=== PATIENT | female | born 1935 | race Caucasian/White ===

== ENCOUNTER 2022-04-20 10:37 | Inpatient (IN) | payer MEDICARE, SELFPAY ==
[2022-04-20 11:43] LABS: #Eosinphils 0.1 thou/uL (0.0-0.7); #Lymphocytes 0.7 thou/uL (1.20-3.40); #Monocytes 0.3 thou/uL (0.11-0.59); #Neutrophils 6.9 thou/uL (1.40-6.50); %Basophils 0.1 % (0.0-1.0); %Eosinophils 1.2 % (0.0-10.0); %Lymphocytes 8.9 % (21.0-51.0); %Monocytes 3.7 % (0.0-10.0); %Neutrophils 86.1 % (42.0-75.0); Hemoglobin 8.5 g/dL (12.0-16.0); Mean Corpuscular HGB CONC 32.5 g/dL (32.0-36.0); Mean Corpuscular Hemoglobin 34.1 pg (27.0-31.0); Mean Platelet Volume 7.5 fL (7.4-10.4); Platelet Count 237 10x3/uL (130-400); RBC Distribution Width 14.6 % (11.5-14.5); Red Blood Cell (RBC) Count 2.49 mill/uL (4.20-5.40)
[2022-04-20 12:06] LABS: ALT (SGPT) 21 U/L (8-55); AST (SGOT) 19 U/L (5-34); Alkaline Phosphatase 71 U/L (40-110); Anion Gap 18 mmol/L (10-20); BUN (Urea Nitrogen) 31 mg/dL (9.8-20.1); Bilirubin, Total 0.4 mg/dL (0.2-1.2); Calc. Creatinine Clearance 0 mL/min (70-130); Calcium 8.3 mg/dL (7.8-10.44); Carbon Dioxide 22 mmol/L (23-31); Chloride 101 mmol/L (98-107); Estimated GFR 23; Globulin 2.7 g/dL (2.4-3.5); Glucose 306 mg/dL (83-110); Potassium 4.3 mmol/L (3.5-5.1); Protein, Total 5.7 g/dL (5.8-8.1); Sodium 137 mmol/L (136-145)
[2022-04-20] MEDS ORDERED: cefTRIAXone\\ROCEPHIN 2 GM VIAL ONE (12:59)
[2022-04-20 13:39] LABS: Bacteria/HPF 4+ HPF (None Seen); Bilirubin Negative (Negative); Blood, Urine 1+ (Negative); Clarity Turbid (Clear); Glucose, Urine (Dipstick) 300 mg/dL (Negative); Ketone, Urine Negative (Negative); Leukocyte 500 Leu/uL (Negative); Nitrite Negative (Negative); Protein, Urine (Dipstick) Negative (Neg-Trace); Specific Gravity, Urine 1.007 (1.002-1.036); Squamous Epithelial None Seen HPF (0-3); Urobilinogen Normal mg/dL (Less than 2); WBC/HPF 21-50 HPF (0-3)
[2022-04-20] MEDS ORDERED: Benzonatate 100 MG CAP PO PRN (14:13)
[2022-04-20] MEDS ORDERED: Dextrose 5% in Water 1,000 ML IV PRN (14:17)
[2022-04-20] MEDS ORDERED: Dextrose 50% Abboject 50 ML SYRINGE SLOW IVP PRN (14:17)
[2022-04-20] MEDS ORDERED: Senokot S 8.6-50 MG TAB PO PRN (14:18)
[2022-04-20] MEDS ORDERED: Ondansetron ODT 4 MG TAB PO PRN (14:18)
[2022-04-20] MEDS ORDERED: Ondansetron PF 4 MG/2 ML Vial IVP PRN (14:18)
[2022-04-20] MEDS ORDERED: Azithromycin 500 MG VIAL ONE (16:11)
[2022-04-20 20:51] VITALS: BMI 25.6
[2022-04-20] MEDS ORDERED: Famotidine 20 MG TAB PO SCH ×3 (21:00)
[2022-04-20 21:12] LABS: Legionella Urinary Ag Negative (Negative); Strep pneumo Urine Ag NEGATIVE (NEGATIVE)
[2022-04-20 21:56] LABS: SARS-CoV-2 NAA Rapid Test Not Detected (NotDetected)
[2022-04-20] MEDS: Apixaban 2.5 MG TAB PO SCH (22:01)
[2022-04-21 04:29] LABS: #Eosinphils 0.2 thou/uL (0.0-0.7); #Lymphocytes 1.2 thou/uL (1.20-3.40); #Monocytes 0.6 thou/uL (0.11-0.59); %Basophils 0.1 % (0.0-1.0); %Eosinophils 2.3 % (0.0-10.0); %Lymphocytes 16.8 % (21.0-51.0); %Monocytes 8.9 % (0.0-10.0); Hemoglobin 7.8 g/dL (12.0-16.0); Mean Corpuscular HGB CONC 33.6 g/dL (32.0-36.0); Mean Corpuscular Hemoglobin 35.3 pg (27.0-31.0); Mean Platelet Volume 7.7 fL (7.4-10.4); Platelet Count 228 10x3/uL (130-400); RBC Distribution Width 14.2 % (11.5-14.5); Red Blood Cell (RBC) Count 2.22 mill/uL (4.20-5.40)
[2022-04-21 04:56] LABS: Anion Gap 15 mmol/L (10-20); BUN (Urea Nitrogen) 25 mg/dL (9.8-20.1); Calc. Creatinine Clearance 24 mL/min (70-130); Calcium 8.2 mg/dL (7.8-10.44); Carbon Dioxide 22 mmol/L (23-31); Chloride 102 mmol/L (98-107); Estimated GFR 27; Glucose 142 mg/dL (83-110); Potassium 4.3 mmol/L (3.5-5.1); Sodium 135 mmol/L (136-145)
[2022-04-21] MEDS: Apixaban 2.5 MG TAB PO SCH ×2 (08:53→20:25)
[2022-04-21] MEDS: predniSONE 20 MG TAB PO SCH (08:53)
[2022-04-21] MEDS: HumaLOG 300 UNITS/3 ML VIAL SC PRN ×2 (11:26→18:33)
[2022-04-21] MEDS: Azithromycin 500 MG in Sodium Chloride 0.9% 250 ML 250 ML IVPB SCH (11:33)
[2022-04-21] MEDS: cefTRIAXone\\ROCEPHIN 1 GM in Sodium Chloride 0.9% 100 ML IVPB SCH (13:02)
[2022-04-21] MEDS ORDERED: Furosemide 40 MG/4 ML VIAL SLOW IVP SCH (16:45)
[2022-04-21] MEDS: Famotidine 20 MG TAB PO SCH (20:24)
[2022-04-22 05:12] LABS: #Eosinphils 0.2 thou/uL (0.0-0.7); #Monocytes 0.5 thou/uL (0.11-0.59); #Neutrophils 5.3 thou/uL (1.40-6.50); %Basophils 0.1 % (0.0-1.0); %Eosinophils 2.5 % (0.0-10.0); %Lymphocytes 14.4 % (21.0-51.0); %Monocytes 7.6 % (0.0-10.0); %Neutrophils 75.3 % (42.0-75.0); Mean Corpuscular HGB CONC 32.8 g/dL (32.0-36.0); Mean Corpuscular Hemoglobin 34.2 pg (27.0-31.0); Mean Platelet Volume 7.6 fL (7.4-10.4); Platelet Count 228 10x3/uL (130-400); RBC Distribution Width 14.3 % (11.5-14.5); Red Blood Cell (RBC) Count 2.32 mill/uL (4.20-5.40)
[2022-04-22 05:30] LABS: Anion Gap 14 mmol/L (10-20); BUN (Urea Nitrogen) 21 mg/dL (9.8-20.1); Calc. Creatinine Clearance 26 mL/min (70-130); Calcium 8.4 mg/dL (7.8-10.44); Carbon Dioxide 24 mmol/L (23-31); Chloride 100 mmol/L (98-107); Estimated GFR 29; Glucose 176 mg/dL (83-110); Potassium 3.4 mmol/L (3.5-5.1); Sodium 135 mmol/L (136-145)
[2022-04-22] MEDS: Furosemide 40 MG/4 ML VIAL SLOW IVP SCH ×2 (05:41→15:43)
[2022-04-22] MEDS: Acetaminophen 325 MG TAB PO PRN ×2 (08:32→16:23)
[2022-04-22] MEDS: Apixaban 2.5 MG TAB PO SCH ×2 (08:32→20:54)
[2022-04-22] MEDS: predniSONE 20 MG TAB PO SCH (08:32)
[2022-04-22] MEDS ORDERED: Phenazopyridine HCl 100 MG TAB PO SCH (11:00)
[2022-04-22] MEDS: cefTRIAXone\\ROCEPHIN 1 GM in Sodium Chloride 0.9% 100 ML IVPB SCH (12:34)
[2022-04-22] MEDS: HumaLOG 300 UNITS/3 ML VIAL SC PRN ×2 (12:38→18:52)
[2022-04-22] MEDS: Azithromycin 500 MG in Sodium Chloride 0.9% 250 ML 250 ML IVPB SCH (15:32)
[2022-04-22] MEDS: Famotidine 20 MG TAB PO SCH (20:54)
[2022-04-22] MEDS ORDERED: Potassium Chloride 20 MEQ TAB PO SCH (21:00)
[2022-04-22] MEDS ORDERED: Electrolyte Replacement Protocol 1 EACH FS PRN (21:00)
[2022-04-23] MEDS: Acetaminophen 325 MG TAB PO PRN ×4 (00:53→20:30)
[2022-04-23 04:35] LABS: #Eosinphils 0.1 thou/uL (0.0-0.7); #Lymphocytes 1.3 thou/uL (1.20-3.40); #Monocytes 0.7 thou/uL (0.11-0.59); #Neutrophils 5.6 thou/uL (1.40-6.50); %Eosinophils 1.7 % (0.0-10.0); %Lymphocytes 16.7 % (21.0-51.0); %Monocytes 9.3 % (0.0-10.0); %Neutrophils 72.3 % (42.0-75.0); Hemoglobin 7.5 g/dL (12.0-16.0); Mean Corpuscular HGB CONC 33.6 g/dL (32.0-36.0); Mean Corpuscular Hemoglobin 34.8 pg (27.0-31.0); Mean Platelet Volume 7.4 fL (7.4-10.4); Platelet Count 253 10x3/uL (130-400); Red Blood Cell (RBC) Count 2.14 mill/uL (4.20-5.40); White Blood Cell (WBC) Count 7.7 10x3/uL (4.8-10.8)
[2022-04-23 05:03] LABS: Anion Gap 15 mmol/L (10-20); BUN (Urea Nitrogen) 20 mg/dL (9.8-20.1); Calc. Creatinine Clearance 25 mL/min (70-130); Calcium 8.5 mg/dL (7.8-10.44); Carbon Dioxide 23 mmol/L (23-31); Chloride 102 mmol/L (98-107); Estimated GFR 29; Glucose 124 mg/dL (83-110); Potassium 4.2 mmol/L (3.5-5.1); Sodium 136 mmol/L (136-145)
[2022-04-23] MEDS: Folic Acid 1 MG TAB PO SCH (09:25)
[2022-04-23] MEDS: Multivit, Therapeutic 1 TAB PO SCH (09:25)
[2022-04-23] MEDS: Apixaban 2.5 MG TAB PO SCH ×2 (09:25→20:30)
[2022-04-23] MEDS: predniSONE 20 MG TAB PO SCH (09:25)
[2022-04-23] MEDS: Cyanocobalamin (Vitamin B-12) 1,000 MCG TAB PO SCH (09:25)
[2022-04-23] MEDS: Furosemide 40 MG TAB PO SCH (09:26)
[2022-04-23] MEDS: Magnesium 2 GM/50 ML(in water) 2 GM in Premix Bag 1 BAG IVPB SCH ×2 (09:26→10:16)
[2022-04-23] MEDS: cefTRIAXone\\ROCEPHIN 1 GM in Sodium Chloride 0.9% 100 ML IVPB SCH (12:29)
[2022-04-23] MEDS: HumaLOG 300 UNITS/3 ML VIAL SC PRN ×2 (12:40→21:53)
[2022-04-23] MEDS: Azithromycin 500 MG in Sodium Chloride 0.9% 250 ML 250 ML IVPB SCH (16:42)
[2022-04-23] MEDS: Famotidine 20 MG TAB PO SCH (20:30)
[2022-04-24] MEDS: Acetaminophen 325 MG TAB PO PRN ×2 (00:42→18:33)
[2022-04-24] MEDS: predniSONE 20 MG TAB PO SCH (10:03)
[2022-04-24] MEDS: Multivit, Therapeutic 1 TAB PO SCH (10:03)
[2022-04-24] MEDS: Apixaban 2.5 MG TAB PO SCH ×2 (10:04→20:06)
[2022-04-24] MEDS: Cyanocobalamin (Vitamin B-12) 1,000 MCG TAB PO SCH (10:04)
[2022-04-24] MEDS: Furosemide 40 MG TAB PO SCH (10:04)
[2022-04-24] MEDS: Folic Acid 1 MG TAB PO SCH (10:04)
[2022-04-24] MEDS: cefTRIAXone\\ROCEPHIN 1 GM in Sodium Chloride 0.9% 100 ML IVPB SCH (13:06)
[2022-04-24] MEDS: Azithromycin 500 MG in Sodium Chloride 0.9% 250 ML 250 ML IVPB SCH (13:07)
[2022-04-24] MEDS: HumaLOG 300 UNITS/3 ML VIAL SC PRN ×3 (13:07→20:10)
[2022-04-24] MEDS ORDERED: diphenhydrAMINE 25 MG CAP PO PRN (19:33)
[2022-04-24] MEDS: Cefdinir 300 MG CAP PO SCH (20:06)
[2022-04-24] MEDS: Famotidine 20 MG TAB PO SCH (20:06)
[2022-04-25] MEDS ORDERED: Azithromycin 250 MG TAB PO SCH (09:00)
[2022-04-25] MEDS: Furosemide 40 MG TAB PO SCH (10:18)
[2022-04-25] MEDS: Cefdinir 300 MG CAP PO SCH (10:19)
[2022-04-25] MEDS: Folic Acid 1 MG TAB PO SCH (10:19)
[2022-04-25] MEDS: Cyanocobalamin (Vitamin B-12) 1,000 MCG TAB PO SCH (10:19)
[2022-04-25] MEDS: Multivit, Therapeutic 1 TAB PO SCH (10:19)
[2022-04-25] MEDS: predniSONE 20 MG TAB PO SCH (10:19)
[2022-04-25] MEDS: Apixaban 2.5 MG TAB PO SCH (10:19)
[2022-04-25 11:31] VITALS: BP 171/72; TEMP 97.6
== END 2022-04-25 14:42 | disposition home health service (06) | DRG 177 ==
LOC: ERS 10:37 → ERHOLD 14:12 → 2NO 20:08
PROVIDERS: ADMIT Internal Medicine; ATTEND Internal Medicine
DX: J15.6 Pneumonia due to other Gram-negative bacteria (principal); J96.21 Acute and chronic respiratory failure with hypoxia; T83.511A Infection and inflammatory reaction due to indwelling urethral catheter, initial encounter; I13.0 Hypertensive heart and chronic kidney disease with heart failure and stage 1 through stage 4 chronic kidney disease, or unspecified chronic kidney disease; E87.1 Hypo-osmolality and hyponatremia; I48.20 Chronic atrial fibrillation, unspecified; N17.9 Acute kidney failure, unspecified; D63.1 Anemia in chronic kidney disease; E87.6 Hypokalemia; R53.81 Other malaise; E11.22 Type 2 diabetes mellitus with diabetic chronic kidney disease; E78.5 Hyperlipidemia, unspecified; N18.30 Chronic kidney disease, stage 3 unspecified; R33.9 Retention of urine, unspecified; I50.9 Heart failure, unspecified; Z79.01 Long term (current) use of anticoagulants; Z88.6 Allergy status to analgesic agent; Z99.81 Dependence on supplemental oxygen; Z88.0 Allergy status to penicillin; Z79.84 Long term (current) use of oral hypoglycemic drugs; Z79.899 Other long term (current) drug therapy; Z79.4 Long term (current) use of insulin; Z98.890 Other specified postprocedural states; Z95.2 Presence of prosthetic heart valve; Z90.49 Acquired absence of other specified parts of digestive tract; Z90.89 Acquired absence of other organs; Z20.822 Contact with and (suspected) exposure to COVID-19
CPT/HCPCS: 36415; 36416; 71045; 80048; 80053; 81003; 81015; 83735; 83880; 84484; 85025; 87040; 87077; 87086; 87186; 87449; 87899; 93005; 93306; 94640; 94760; 96374; 96375; J0456; J0696; J1815; J1940; J3475; J3490; J7050; J7512; J7620

== ENCOUNTER 2022-06-10 14:12 | Inpatient (IN) | payer MEDICARE ==
[2022-06-10 14:37] LABS: #Eosinphils 0.1 thou/uL (0.0-0.7); #Lymphocytes 0.8 thou/uL (1.20-3.40); #Monocytes 0.4 thou/uL (0.11-0.59); #Neutrophils 8.1 thou/uL (1.40-6.50); %Basophils 0.2 % (0.0-1.0); %Eosinophils 1.5 % (0.0-10.0); %Lymphocytes 8.6 % (21.0-51.0); %Monocytes 3.9 % (0.0-10.0); %Neutrophils 85.8 % (42.0-75.0); Hemoglobin 10.1 g/dL (12.0-16.0); Mean Corpuscular HGB CONC 32.9 g/dL (32.0-36.0); Mean Corpuscular Hemoglobin 34.2 pg (27.0-31.0); Mean Platelet Volume 8.1 fL (7.4-10.4); Platelet Count 216 10x3/uL (130-400); RBC Distribution Width 13.2 % (11.5-14.5); Red Blood Cell (RBC) Count 2.94 mill/uL (4.20-5.40); White Blood Cell (WBC) Count 9.4 10x3/uL (4.8-10.8)
[2022-06-10 14:47] LABS: INR-International Normal Ratio 0.9; PTT 25.3 sec (22.9-36.1); Prothrombin Time 12.5 sec (12.0-14.7)
[2022-06-10 15:11] LABS: ALT (SGPT) 66 U/L (8-55); AST (SGOT) 55 U/L (5-34); Albumin 3.4 g/dL (3.4-4.8); Alkaline Phosphatase 91 U/L (40-110); Anion Gap 18 mmol/L (10-20); BUN (Urea Nitrogen) 22 mg/dL (9.8-20.1); Bilirubin, Total 0.4 mg/dL (0.2-1.2); Calc. Creatinine Clearance 0 mL/min (70-130); Carbon Dioxide 24 mmol/L (23-31); Chloride 101 mmol/L (98-107); Estimated GFR 22; Globulin 2.9 g/dL (2.4-3.5); Glucose 216 mg/dL (83-110); Potassium 3.8 mmol/L (3.5-5.1); Protein, Total 6.3 g/dL (5.8-8.1); Sodium 139 mmol/L (136-145)
[2022-06-10 15:33] LABS: CKMB 1.5 ng/mL (0-6.6)
[2022-06-10] MEDS ORDERED: Ondansetron PF 4 MG/2 ML Vial IVP PRN (17:20)
[2022-06-10] MEDS ORDERED: Furosemide 40 MG/4 ML VIAL SLOW IVP SCH (18:00)
[2022-06-10 19:01] LABS: Anion Gap 19 mmol/L (10-20); BUN (Urea Nitrogen) 24 mg/dL (9.8-20.1); Calc. Creatinine Clearance 0 mL/min (70-130); Calcium 8.8 mg/dL (7.8-10.44); Carbon Dioxide 21 mmol/L (23-31); Chloride 103 mmol/L (98-107); Estimated GFR 23; Glucose 190 mg/dL (83-110); Sodium 139 mmol/L (136-145)
[2022-06-10] MEDS ORDERED: Aspirin 325 MG TAB ONE (19:11)
[2022-06-10 19:20] LABS: CKMB 1.6 ng/mL (0-6.6)
[2022-06-10] MEDS: Acetaminophen 325 MG TAB PO PRN (21:50)
[2022-06-10 22:46] LABS: Troponin I 0.053 ng/mL (< 0.028)
[2022-06-11 00:17] VITALS: BMI 23.1
[2022-06-11 07:23] LABS: Bacteria/HPF None Seen HPF (None Seen); Bilirubin Negative (Negative); Blood, Urine Negative (Negative); CAUTI Indications for Culture Dysuria,urgency,freq; Clarity Clear (Clear); Glucose, Urine (Dipstick) Normal (Negative); Ketone, Urine Trace mg/dL (Negative); Leukocyte Negative Leu/uL (Negative); Nitrite Negative (Negative); Protein, Urine (Dipstick) Negative (Neg-Trace); RBC/HPF 0-3 HPF (0-3); Specific Gravity, Urine 1.013 (1.002-1.036); Squamous Epithelial 0-3 HPF (0-3); Urobilinogen Normal mg/dL (Less than 2); WBC/HPF 0-3 HPF (0-3)
[2022-06-11 07:28] LABS: Urine Culture Reflex No No
[2022-06-11 13:18] LABS: Cardiac Risk 3.4 (Less than 4.5)
[2022-06-11] MEDS ORDERED: Aspirin 81 mg Enteric Coated Tablet PO SCH (15:15)
[2022-06-11] MEDS ORDERED: Clopidogrel Bisulfate 75 MG TAB PO SCH (15:15)
[2022-06-11] MEDS: Atorvastatin Calcium 40 MG TAB PO SCH (20:04)
[2022-06-12] MEDS: Clopidogrel Bisulfate 75 MG TAB PO SCH (10:24)
[2022-06-12] MEDS: Aspirin 81 mg Enteric Coated Tablet PO SCH (10:24)
[2022-06-12] MEDS: Acetaminophen 325 MG TAB PO PRN (10:56)
[2022-06-12] MEDS ORDERED: Dextrose 5% in Water 1,000 ML IV PRN (14:00)
[2022-06-12] MEDS: Atorvastatin Calcium 40 MG TAB PO SCH (20:14)
[2022-06-13] MEDS: Acetaminophen 325 MG TAB PO PRN (01:56)
[2022-06-13] MEDS: Aspirin 81 mg Enteric Coated Tablet PO SCH (09:21)
[2022-06-13] MEDS: Clopidogrel Bisulfate 75 MG TAB PO SCH (09:21)
[2022-06-13] MEDS: busPIRone HCl 5 MG TAB PO SCH ×2 (16:45→21:02)
[2022-06-13] MEDS: traMADol HCl 50 MG TAB PO PRN (16:56)
[2022-06-13] MEDS: Mometasone 200 MCG/Formoterol 5 MCG 120 PUFF INHALER INH SCH (19:53)
[2022-06-13] MEDS: Atorvastatin Calcium 40 MG TAB PO SCH (21:02)
[2022-06-13] MEDS: Senokot S 8.6-50 MG TAB PO SCH (21:02)
[2022-06-13] MEDS: Amiodarone 200 MG TAB PO SCH (21:02)
[2022-06-13] MEDS: Carvedilol 6.25 MG TAB PO SCH (21:02)
[2022-06-14] MEDS: Mometasone 200 MCG/Formoterol 5 MCG 120 PUFF INHALER INH SCH ×2 (08:43→19:43)
[2022-06-14] MEDS ORDERED: Atorvastatin Calcium 40 MG TAB PO SCH (09:00)
[2022-06-14] MEDS ORDERED: Aspirin Chewable 81 MG TAB PO SCH (09:00)
[2022-06-14] MEDS: Amlodipine 10 MG TAB PO SCH (09:45)
[2022-06-14] MEDS: Senokot S 8.6-50 MG TAB PO SCH ×2 (09:45→22:31)
[2022-06-14] MEDS: Carvedilol 6.25 MG TAB PO SCH (09:45)
[2022-06-14] MEDS: Aspirin 81 mg Enteric Coated Tablet PO SCH (09:46)
[2022-06-14] MEDS: busPIRone HCl 5 MG TAB PO SCH ×3 (09:46→22:31)
[2022-06-14] MEDS: Clopidogrel Bisulfate 75 MG TAB PO SCH (09:46)
[2022-06-14] MEDS: Amiodarone 200 MG TAB PO SCH (09:46)
[2022-06-14 11:16] LABS: #Eosinphils 0.2 thou/uL (0.0-0.7); #Lymphocytes 1.2 thou/uL (1.20-3.40); #Monocytes 0.6 thou/uL (0.11-0.59); #Neutrophils 6.2 thou/uL (1.40-6.50); %Basophils 0.2 % (0.0-1.0); %Eosinophils 2.9 % (0.0-10.0); %Lymphocytes 14.5 % (21.0-51.0); %Monocytes 7.6 % (0.0-10.0); %Neutrophils 74.7 % (42.0-75.0); Hemoglobin 9.7 g/dL (12.0-16.0); Mean Corpuscular HGB CONC 33.5 g/dL (32.0-36.0); Mean Corpuscular Hemoglobin 33.9 pg (27.0-31.0); Mean Platelet Volume 7.9 fL (7.4-10.4); Platelet Count 234 10x3/uL (130-400); Red Blood Cell (RBC) Count 2.86 mill/uL (4.20-5.40); White Blood Cell (WBC) Count 8.3 10x3/uL (4.8-10.8)
[2022-06-14 11:35] LABS: Anion Gap 14 mmol/L (10-20); BUN (Urea Nitrogen) 17 mg/dL (9.8-20.1); Calc. Creatinine Clearance 26 mL/min (70-130); Calcium 8.7 mg/dL (7.8-10.44); Carbon Dioxide 25 mmol/L (23-31); Chloride 101 mmol/L (98-107); Estimated GFR 33; Glucose 126 mg/dL (83-110); Potassium 3.9 mmol/L (3.5-5.1); Sodium 136 mmol/L (136-145)
[2022-06-14] MEDS: Betamethasone 0.1% Cream 15 GM TUBE TOP SCH (11:46)
[2022-06-14] MEDS: Atorvastatin Calcium 40 MG TAB PO SCH (22:31)
[2022-06-15] MEDS: Mometasone 200 MCG/Formoterol 5 MCG 120 PUFF INHALER INH SCH ×2 (07:58→18:20)
[2022-06-15] MEDS ORDERED: Protamine Sulfate 50 MG/5 ML VIAL ONE (11:15)
[2022-06-15] MEDS ORDERED: Bupivacaine HCl 0.5%/Epinephrine 1:200,000/PF 30 ml Vial ONE (11:15)
[2022-06-15] MEDS ORDERED: Heparin 5,000 UNITS/ML VIAL ONE (11:15)
[2022-06-15] MEDS ORDERED: fentaNYL PF 100 MCG/2 ML SYRINGE ONE (11:23)
[2022-06-15] MEDS ORDERED: Sodium Chloride 0.9% 0 ML ONE (11:41)
[2022-06-15] MEDS ORDERED: CEFAZOLIN 2 GM VIAL ONE (11:41)
[2022-06-15] MEDS ORDERED: PROPOFOL 200 MG/20 ML VIAL ONE (11:55)
[2022-06-15] MEDS ORDERED: Rocuronium Bromide 10 MG/ML (10ML VIAL) ONE (11:55)
[2022-06-15] MEDS ORDERED: Ondansetron PF 4 MG/2 ML Vial ONE (11:55)
[2022-06-15] MEDS ORDERED: Dexamethasone 20 MG/5 ML VIAL ONE (11:55)
[2022-06-15] MEDS ORDERED: Lidocaine 1% PF 5 ML VIAL ONE (11:55)
[2022-06-15] MEDS ORDERED: Clindamycin/D5W 600 mg/50 ml Premix Bag ONE (12:19)
[2022-06-15] MEDS ORDERED: SUGAMMADEX SODIUM 200 MG/2 ML VIAL ONE (13:21)
[2022-06-15] MEDS ORDERED: Ondansetron HCl/PF 4 MG/2 ML Vial IVP PRN (13:47)
[2022-06-15] MEDS ORDERED: Fentanyl 100 MCG/2 ML VIAL SLOW IVP PRN (13:47)
[2022-06-15] MEDS ORDERED: niCARdipine 25 MG in Sodium Chloride 0.9% 250 ML 250 ML IVPB PRN (13:47)
[2022-06-15] MEDS ORDERED: Ipratropium/Albuterol 3 ML NEB NEB PRN (13:47)
[2022-06-15] MEDS ORDERED: Promethazine HCl 25 MG/ML VIAL IM PRN (13:47)
[2022-06-15] MEDS ORDERED: NOREPINEPHRINE 8 MG/250 ML-D5W 250 ML IVPB PRN (13:47)
[2022-06-15] MEDS: Clopidogrel Bisulfate 75 MG TAB PO SCH (16:03)
[2022-06-15] MEDS: Aspirin 81 mg Enteric Coated Tablet PO SCH (16:03)
[2022-06-15] MEDS: Amlodipine 10 MG TAB PO SCH (16:03)
[2022-06-15] MEDS: busPIRone HCl 5 MG TAB PO SCH ×3 (16:03→20:46)
[2022-06-15] MEDS: Betamethasone 0.1% Cream 15 GM TUBE TOP SCH (16:03)
[2022-06-15] MEDS: Senokot S 8.6-50 MG TAB PO SCH ×2 (16:04→20:45)
[2022-06-15] MEDS: Sodium Chloride 0.9% 1,000 ML IV SCH (16:04)
[2022-06-15] MEDS: traMADol HCl 50 MG TAB PO PRN (18:23)
[2022-06-15] MEDS: Acetaminophen 325 MG TAB PO PRN (18:24)
[2022-06-15] MEDS: Clindamycin/D5W 900 MG in Premix Bag 1 BAG IVPB SCH ×2 (18:25→23:06)
[2022-06-15] MEDS: HumaLOG 300 UNITS/3 ML VIAL SC PRN (20:44)
[2022-06-15] MEDS: Atorvastatin Calcium 40 MG TAB PO SCH (20:45)
[2022-06-15] MEDS: Amiodarone 200 MG TAB PO SCH (20:45)
[2022-06-16 03:56] LABS: #Lymphocytes 0.8 thou/uL (1.20-3.40); #Monocytes 0.5 thou/uL (0.11-0.59); #Neutrophils 10.9 thou/uL (1.40-6.50); %Basophils 0.1 % (0.0-1.0); %Eosinophils 0.4 % (0.0-10.0); %Lymphocytes 6.5 % (21.0-51.0); %Monocytes 4.4 % (0.0-10.0); %Neutrophils 88.6 % (42.0-75.0); Mean Corpuscular HGB CONC 33.2 g/dL (32.0-36.0); Mean Corpuscular Hemoglobin 33.8 pg (27.0-31.0); Mean Platelet Volume 8.4 fL (7.4-10.4); Platelet Count 209 10x3/uL (130-400); RBC Distribution Width 13.1 % (11.5-14.5); Red Blood Cell (RBC) Count 2.66 mill/uL (4.20-5.40); White Blood Cell (WBC) Count 12.3 10x3/uL (4.8-10.8)
[2022-06-16 04:18] LABS: Anion Gap 18 mmol/L (10-20); BUN (Urea Nitrogen) 28 mg/dL (9.8-20.1); Calc. Creatinine Clearance 0 mL/min (70-130); Calcium 8.2 mg/dL (7.8-10.44); Carbon Dioxide 19 mmol/L (23-31); Chloride 100 mmol/L (98-107); Estimated GFR 24; Glucose 171 mg/dL (83-110); Potassium 4.3 mmol/L (3.5-5.1); Sodium 133 mmol/L (136-145)
[2022-06-16] MEDS: HumaLOG 300 UNITS/3 ML VIAL SC PRN (06:48)
[2022-06-16] MEDS: Clindamycin/D5W 900 MG in Premix Bag 1 BAG IVPB SCH ×2 (06:48→11:54)
[2022-06-16] MEDS: Mometasone 200 MCG/Formoterol 5 MCG 120 PUFF INHALER INH SCH ×2 (08:04→18:56)
[2022-06-16] MEDS: Aspirin 81 mg Enteric Coated Tablet PO SCH (09:15)
[2022-06-16] MEDS: Amiodarone 200 MG TAB PO SCH ×2 (09:15→20:29)
[2022-06-16] MEDS: Senokot S 8.6-50 MG TAB PO SCH ×2 (09:15→20:29)
[2022-06-16] MEDS: Amlodipine 10 MG TAB PO SCH (09:16)
[2022-06-16] MEDS: busPIRone HCl 5 MG TAB PO SCH ×3 (09:16→20:33)
[2022-06-16] MEDS: Clopidogrel Bisulfate 75 MG TAB PO SCH (09:16)
[2022-06-16] MEDS: Betamethasone 0.1% Cream 15 GM TUBE TOP SCH (11:54)
[2022-06-16] MEDS: Sodium Chloride 0.9% 1,000 ML IV SCH (11:55)
[2022-06-16] MEDS ORDERED: Labetalol HCl 100 MG/20 ML VIAL SLOW IVP PRN (16:37)
[2022-06-16] MEDS: hydrALAZINE 20 MG/ML VIAL SLOW IVP PRN ×2 (16:47→20:29)
[2022-06-16] MEDS: Atorvastatin Calcium 40 MG TAB PO SCH (20:28)
[2022-06-17] MEDS: Acetaminophen 325 MG TAB PO PRN (02:51)
[2022-06-17 07:18] LABS: #Eosinphils 0.2 thou/uL (0.0-0.7); #Lymphocytes 1.2 thou/uL (1.20-3.40); #Monocytes 0.9 thou/uL (0.11-0.59); #Neutrophils 7.8 thou/uL (1.40-6.50); %Basophils 0.1 % (0.0-1.0); %Eosinophils 2.1 % (0.0-10.0); %Lymphocytes 11.9 % (21.0-51.0); Hemoglobin 8.8 g/dL (12.0-16.0); Mean Corpuscular HGB CONC 32.6 g/dL (32.0-36.0); Mean Corpuscular Hemoglobin 33.5 pg (27.0-31.0); Mean Platelet Volume 7.9 fL (7.4-10.4); Platelet Count 232 10x3/uL (130-400); RBC Distribution Width 13.6 % (11.5-14.5); Red Blood Cell (RBC) Count 2.63 mill/uL (4.20-5.40); White Blood Cell (WBC) Count 10.1 10x3/uL (4.8-10.8)
[2022-06-17 07:34] LABS: Anion Gap 12 mmol/L (10-20); BUN (Urea Nitrogen) 27 mg/dL (9.8-20.1); Calc. Creatinine Clearance 20 mL/min (70-130); Calcium 8.4 mg/dL (7.8-10.44); Carbon Dioxide 25 mmol/L (23-31); Chloride 100 mmol/L (98-107); Estimated GFR 24; Glucose 103 mg/dL (83-110); Potassium 3.8 mmol/L (3.5-5.1); Sodium 133 mmol/L (136-145)
[2022-06-17] MEDS: Mometasone 200 MCG/Formoterol 5 MCG 120 PUFF INHALER INH SCH ×2 (07:38→18:52)
[2022-06-17] MEDS: Senokot S 8.6-50 MG TAB PO SCH (08:11)
[2022-06-17] MEDS: Amiodarone 200 MG TAB PO SCH (08:11)
[2022-06-17] MEDS: Amlodipine 10 MG TAB PO SCH (08:11)
[2022-06-17] MEDS: busPIRone HCl 5 MG TAB PO SCH ×2 (08:11→14:05)
[2022-06-17] MEDS: traMADol HCl 50 MG TAB PO PRN (08:11)
[2022-06-17] MEDS: Clopidogrel Bisulfate 75 MG TAB PO SCH (08:11)
[2022-06-17] MEDS: Aspirin 81 mg Enteric Coated Tablet PO SCH (08:11)
[2022-06-17] MEDS: Sodium Chloride 0.9% 1,000 ML IV SCH (14:05)
[2022-06-17 16:40] VITALS: TEMP 98.1
[2022-06-17 16:57] VITALS: BP 162/72
== END 2022-06-17 19:42 | DRG 37 ==
LOC: ERS 14:12 → NEURO 17:20 → OBSVTOIN 06-11 16:15 → CCU 06-15 10:15 → NEURO 06-16 15:29
PROVIDERS: ADMIT Internal Medicine; ATTEND Family Medicine
PROC: 03CL0ZZ Extirpation of Matter from Left Internal Carotid Artery, Open Approach (ICD-10-PCS; principal; 2022-06-15)
PROC: 03UL0KZ Supplement Left Internal Carotid Artery with Nonautologous Tissue Substitute, Open Approach (ICD-10-PCS; 2022-06-15)
PROC: 3E033XZ Introduction of Vasopressor into Peripheral Vein, Percutaneous Approach (ICD-10-PCS; 2022-06-15)
DX: I63.9 Cerebral infarction, unspecified (principal); I21.A1 Myocardial infarction type 2; G81.94 Hemiplegia, unspecified affecting left nondominant side; I13.0 Hypertensive heart and chronic kidney disease with heart failure and stage 1 through stage 4 chronic kidney disease, or unspecified chronic kidney disease; N17.9 Acute kidney failure, unspecified; J96.10 Chronic respiratory failure, unspecified whether with hypoxia or hypercapnia; I48.20 Chronic atrial fibrillation, unspecified; J44.9 Chronic obstructive pulmonary disease, unspecified; I65.23 Occlusion and stenosis of bilateral carotid arteries; R47.81 Slurred speech; N18.30 Chronic kidney disease, stage 3 unspecified; I50.9 Heart failure, unspecified; E11.22 Type 2 diabetes mellitus with diabetic chronic kidney disease; E78.5 Hyperlipidemia, unspecified; R53.81 Other malaise; R33.9 Retention of urine, unspecified; R59.0 Localized enlarged lymph nodes; R91.1 Solitary pulmonary nodule; Z20.822 Contact with and (suspected) exposure to COVID-19; Z98.890 Other specified postprocedural states; Z79.01 Long term (current) use of anticoagulants; Z95.2 Presence of prosthetic heart valve; Z86.73 Personal history of transient ischemic attack (TIA), and cerebral infarction without residual deficits; Z88.0 Allergy status to penicillin; Z88.6 Allergy status to analgesic agent; Z79.82 Long term (current) use of aspirin; Z79.899 Other long term (current) drug therapy; Z79.4 Long term (current) use of insulin; I27.20 Pulmonary hypertension, unspecified; R29.705 NIHSS score 5
CPT/HCPCS: 36415; 36416; 70450; 70490; 70551; 71045; 80048; 80053; 80061; 81001; 82553; 83880; 84484; 85025; 85610; 85730; 93005; 93306; 93880; 94760; 96374; C1768; G0378; J0360; J1100; J1644; J1815; J1940; J2405; J2704; J2720; J3490; J7050; U0003; U0005

== ENCOUNTER 2022-07-06 14:27 | Inpatient (IN) | payer MEDICARE ==
[~2022-07-06 14:27] MED LIST: Iopamidol-370 76% 500 ML 1 ML ONE
[2022-07-06] MEDS ORDERED: Ondansetron PF 4 MG/2 ML Vial ONE (16:06)
[2022-07-06 16:22] LABS: #Eosinphils 0.1 thou/uL (0.0-0.7); #Lymphocytes 0.6 thou/uL (1.20-3.40); #Monocytes 0.5 thou/uL (0.11-0.59); #Neutrophils 7.6 thou/uL (1.40-6.50); %Basophils 0.1 % (0.0-1.0); %Eosinophils 0.9 % (0.0-10.0); %Lymphocytes 6.4 % (21.0-51.0); %Monocytes 5.3 % (0.0-10.0); %Neutrophils 87.4 % (42.0-75.0); Hemoglobin 8.3 g/dL (12.0-16.0); Mean Corpuscular HGB CONC 32.8 g/dL (32.0-36.0); Mean Corpuscular Hemoglobin 34.3 pg (27.0-31.0); Mean Platelet Volume 7.8 fL (7.4-10.4); Platelet Count 316 10x3/uL (130-400); RBC Distribution Width 16.2 % (11.5-14.5); Red Blood Cell (RBC) Count 2.43 mill/uL (4.20-5.40); White Blood Cell (WBC) Count 8.7 10x3/uL (4.8-10.8)
[2022-07-06 16:29] LABS: ALT (SGPT) 66 U/L (8-55); AST (SGOT) 75 U/L (5-34); Albumin 2.7 g/dL (3.4-4.8); Alkaline Phosphatase 92 U/L (40-110); Anion Gap 19 mmol/L (10-20); BUN (Urea Nitrogen) 18 mg/dL (9.8-20.1); Bilirubin, Total 0.4 mg/dL (0.2-1.2); Calc. Creatinine Clearance 0 mL/min (70-130); Calcium 8.5 mg/dL (7.8-10.44); Carbon Dioxide 20 mmol/L (23-31); Chloride 100 mmol/L (98-107); Estimated GFR 28; Globulin 3.1 g/dL (2.4-3.5); Glucose 131 mg/dL (83-110); Potassium 3.6 mmol/L (3.5-5.1); Protein, Total 5.8 g/dL (5.8-8.1); Sodium 135 mmol/L (136-145)
[2022-07-06 16:47] LABS: CKMB 1.1 ng/mL (0-6.6)
[2022-07-06 17:12] LABS: INR-International Normal Ratio 0.9; Prothrombin Time 12.5 sec (12.0-14.7)
[2022-07-06] MEDS ORDERED: Aspirin 300 MG Suppository ONE (17:12)
[2022-07-06 17:17] LABS: PTT 21.4 sec (22.9-36.1)
[2022-07-06] MEDS ORDERED: Ondansetron ODT 4 MG TAB PO PRN (17:27)
[2022-07-06] MEDS ORDERED: Senokot S 8.6-50 MG TAB PO PRN (17:27)
[2022-07-06] MEDS ORDERED: Dextrose 5%-Lactated Ringers 1,000 ML IV SCH (17:30)
[2022-07-06] MEDS ORDERED: Dextrose 50% Abboject 50 ML SYRINGE SLOW IVP PRN (17:33)
[2022-07-06] MEDS ORDERED: Dextrose 5% in Water 1,000 ML IV PRN (17:33)
[2022-07-06 20:15] LABS: SARS-CoV-2 NAA Rapid Test Not Detected (NotDetected)
[2022-07-06] MEDS: Famotidine/PF 20 mg/2ml Vial SLOW IVP SCH (21:00)
[2022-07-06] MEDS ORDERED: Atorvastatin Calcium 40 MG TAB PO SCH (21:00)
[2022-07-06] MEDS: Amiodarone 200 MG TAB PO SCH (22:09)
[2022-07-06] MEDS: busPIRone HCl 5 MG TAB PO SCH (22:09)
[2022-07-06] MEDS: Famotidine 20 MG TAB PO SCH (22:09)
[2022-07-07] MEDS: Mometasone 200 MCG/Formoterol 5 MCG 120 PUFF INHALER INH SCH ×3 (00:21→19:12)
[2022-07-07 05:16] LABS: #Eosinphils 0.1 thou/uL (0.0-0.7); #Lymphocytes 0.5 thou/uL (1.20-3.40); #Monocytes 0.5 thou/uL (0.11-0.59); #Neutrophils 7.9 thou/uL (1.40-6.50); %Basophils 0.1 % (0.0-1.0); %Eosinophils 1.4 % (0.0-10.0); %Monocytes 5.7 % (0.0-10.0); %Neutrophils 86.8 % (42.0-75.0); Hemoglobin 7.8 g/dL (12.0-16.0); Mean Corpuscular Hemoglobin 34.4 pg (27.0-31.0); Mean Platelet Volume 7.8 fL (7.4-10.4); Platelet Count 289 10x3/uL (130-400); RBC Distribution Width 16.2 % (11.5-14.5); Red Blood Cell (RBC) Count 2.28 mill/uL (4.20-5.40); White Blood Cell (WBC) Count 9.1 10x3/uL (4.8-10.8)
[2022-07-07 05:34] LABS: Anion Gap 17 mmol/L (10-20); BUN (Urea Nitrogen) 19 mg/dL (9.8-20.1); Calc. Creatinine Clearance 21 mL/min (70-130); Calcium 8.5 mg/dL (7.8-10.44); Carbon Dioxide 22 mmol/L (23-31); Chloride 102 mmol/L (98-107); Cholesterol 128 mg/dl (< 200 Desired); Estimated GFR 26; Glucose 111 mg/dL (83-110); Potassium 3.8 mmol/L (3.5-5.1); Sodium 137 mmol/L (136-145); Triglycerides 122 mg/dL (Less than 150)
[2022-07-07 05:48] LABS: Cardiac Risk 3.2 (Less than 4.5); LDL Cholesterol, Calculated 63 mg/dL
[2022-07-07 06:16] LABS: HDL Cholesterol 39 mg/dL (>60 Neg Risk)
[2022-07-07] MEDS ORDERED: Aspirin 81 mg Enteric Coated Tablet PO SCH (09:00)
[2022-07-07] MEDS: Famotidine 20 MG TAB PO SCH (10:43)
[2022-07-07] MEDS: Famotidine/PF 20 mg/2ml Vial SLOW IVP SCH (10:43)
[2022-07-07] MEDS: Amiodarone 200 MG TAB PO SCH ×2 (12:29→21:33)
[2022-07-07] MEDS: Amlodipine 10 MG TAB PO SCH (12:30)
[2022-07-07] MEDS: busPIRone HCl 5 MG TAB PO SCH ×3 (12:30→21:33)
[2022-07-07] MEDS: Clopidogrel Bisulfate 75 MG TAB PO SCH (12:31)
[2022-07-07] MEDS: D5 1/2 NS w/10 mEq KCl 1,000 ML/1,000 ML BAG IV SCH (16:58)
[2022-07-07] MEDS ORDERED: Acetaminophen 650 MG Suppository PR PRN (20:48)
[2022-07-07] MEDS ORDERED: Famotidine/PF 20 mg/2ml Vial SLOW IVP SCH (21:00)
[2022-07-07] MEDS ORDERED: Famotidine 20 MG TAB PO SCH (21:00)
[2022-07-07] MEDS: Scopolamine 1.5 mg/72 hour Patch TD SCH (21:32)
[2022-07-07] MEDS ORDERED: Fentanyl 100 MCG/2 ML VIAL SLOW IVP SCH (22:00)
[2022-07-07] MEDS: Ondansetron PF 4 MG/2 ML Vial IVP PRN (22:06)
[2022-07-08 05:33] LABS: #Eosinphils 0.1 thou/uL (0.0-0.7); #Lymphocytes 0.5 thou/uL (1.20-3.40); #Monocytes 0.5 thou/uL (0.11-0.59); #Neutrophils 6.5 thou/uL (1.40-6.50); %Basophils 0.2 % (0.0-1.0); %Eosinophils 1.9 % (0.0-10.0); %Lymphocytes 6.4 % (21.0-51.0); %Monocytes 6.1 % (0.0-10.0); %Neutrophils 85.4 % (42.0-75.0); Hemoglobin 7.7 g/dL (12.0-16.0); Mean Corpuscular HGB CONC 32.6 g/dL (32.0-36.0); Mean Corpuscular Hemoglobin 34.4 pg (27.0-31.0); Mean Platelet Volume 7.8 fL (7.4-10.4); Platelet Count 276 10x3/uL (130-400); Red Blood Cell (RBC) Count 2.22 mill/uL (4.20-5.40); White Blood Cell (WBC) Count 7.6 10x3/uL (4.8-10.8)
[2022-07-08 05:49] LABS: Anion Gap 17 mmol/L (10-20); BUN (Urea Nitrogen) 19 mg/dL (9.8-20.1); Calc. Creatinine Clearance 22 mL/min (70-130); Calcium 8.3 mg/dL (7.8-10.44); Carbon Dioxide 23 mmol/L (23-31); Chloride 103 mmol/L (98-107); Estimated GFR 27; Glucose 147 mg/dL (83-110); Potassium 3.5 mmol/L (3.5-5.1); Sodium 139 mmol/L (136-145)
[2022-07-08] MEDS: Mometasone 200 MCG/Formoterol 5 MCG 120 PUFF INHALER INH SCH ×2 (07:52→20:25)
[2022-07-08] MEDS: Pantoprazole 40 MG VIAL IVP SCH (09:08)
[2022-07-08] MEDS: Amlodipine 10 MG TAB PO SCH (09:53)
[2022-07-08] MEDS: Clopidogrel Bisulfate 75 MG TAB PO SCH (09:53)
[2022-07-08] MEDS: Amiodarone 200 MG TAB PO SCH ×2 (09:53→21:55)
[2022-07-08] MEDS: busPIRone HCl 5 MG TAB PO SCH ×3 (09:53→21:55)
[2022-07-08] MEDS: Aspirin 300 MG Suppository PR SCH (11:33)
[2022-07-08] MEDS: D5 1/2 NS w/10 mEq KCl 1,000 ML/1,000 ML BAG IV SCH (11:42)
[2022-07-08 12:39] VITALS: BMI 21.6
[2022-07-08] MEDS: Ondansetron PF 4 MG/2 ML Vial IVP PRN (21:52)
[2022-07-08] MEDS: traMADol HCl 50 MG TAB PO PRN (21:55)
[2022-07-09] MEDS: D5 1/2 NS w/10 mEq KCl 1,000 ML/1,000 ML BAG IV SCH ×2 (04:06→17:07)
[2022-07-09] MEDS: Acetaminophen 325 MG TAB PO PRN (05:38)
[2022-07-09] MEDS: Mometasone 200 MCG/Formoterol 5 MCG 120 PUFF INHALER INH SCH ×2 (07:51→19:25)
[2022-07-09 10:40] LABS: #Eosinphils 0.2 thou/uL (0.0-0.7); #Lymphocytes 0.7 thou/uL (1.20-3.40); #Monocytes 0.6 thou/uL (0.11-0.59); #Neutrophils 6.9 thou/uL (1.40-6.50); #Neutrophils 7.1 thou/uL (1.40-6.50); %Basophils 0.1 % (0.0-1.0); %Basophils 0.4 % (0.0-1.0); %Eosinophils 2.2 % (0.0-10.0); %Eosinophils 2.3 % (0.0-10.0); %Lymphocytes 8.3 % (21.0-51.0); %Lymphocytes 8.5 % (21.0-51.0); %Monocytes 6.6 % (0.0-10.0); %Monocytes 7.2 % (0.0-10.0); %Neutrophils 81.6 % (42.0-75.0); %Neutrophils 82.8 % (42.0-75.0); Hemoglobin 8.1 g/dL (12.0-16.0); Hemoglobin 8.2 g/dL (12.0-16.0); Mean Corpuscular Hemoglobin 34.6 pg (27.0-31.0); Mean Platelet Volume 7.6 fL (7.4-10.4); Mean Platelet Volume 7.7 fL (7.4-10.4); Platelet Count 268 10x3/uL (130-400); Platelet Count 269 10x3/uL (130-400); RBC Distribution Width 16.2 % (11.5-14.5); Red Blood Cell (RBC) Count 2.35 mill/uL (4.20-5.40); Red Blood Cell (RBC) Count 2.36 mill/uL (4.20-5.40); White Blood Cell (WBC) Count 8.5 10x3/uL (4.8-10.8); White Blood Cell (WBC) Count 8.6 10x3/uL (4.8-10.8)
[2022-07-09] MEDS: Aspirin 300 MG Suppository PR SCH (10:44)
[2022-07-09] MEDS ORDERED: Aspirin 325 MG TAB PO SCH (10:45)
[2022-07-09] MEDS: Clopidogrel Bisulfate 75 MG TAB PO SCH (10:50)
[2022-07-09] MEDS: busPIRone HCl 5 MG TAB PO SCH ×3 (10:52→22:39)
[2022-07-09 10:54] LABS: Anion Gap 11 mmol/L (10-20); BUN (Urea Nitrogen) 13 mg/dL (9.8-20.1); Calc. Creatinine Clearance 30 mL/min (70-130); Calcium 8.2 mg/dL (7.8-10.44); Carbon Dioxide 26 mmol/L (23-31); Chloride 105 mmol/L (98-107); Estimated GFR 40; Glucose 168 mg/dL (83-110); Potassium 3.7 mmol/L (3.5-5.1); Sodium 138 mmol/L (136-145)
[2022-07-09] MEDS: Amiodarone 200 MG TAB PO SCH ×2 (10:57→22:39)
[2022-07-09] MEDS: Amlodipine 10 MG TAB PO SCH (10:57)
[2022-07-09] MEDS: Pantoprazole 40 MG VIAL IVP SCH (10:59)
[2022-07-09] MEDS ORDERED: Acetaminophen/Codeine 30-300mg Tablet PO PRN (12:39)
[2022-07-09 16:12] LABS: #Eosinphils 0.1 thou/uL (0.0-0.7); #Lymphocytes 0.8 thou/uL (1.20-3.40); #Monocytes 0.5 thou/uL (0.11-0.59); #Neutrophils 5.5 thou/uL (1.40-6.50); %Eosinophils 1.5 % (0.0-10.0); %Lymphocytes 12.1 % (21.0-51.0); %Monocytes 7.1 % (0.0-10.0); %Neutrophils 79.2 % (42.0-75.0); Mean Corpuscular HGB CONC 33.3 g/dL (32.0-36.0); Mean Corpuscular Hemoglobin 34.9 pg (27.0-31.0); Platelet Count 226 10x3/uL (130-400); RBC Distribution Width 16.3 % (11.5-14.5); Red Blood Cell (RBC) Count 2.28 mill/uL (4.20-5.40)
[2022-07-09 16:32] LABS: Anion Gap 9 mmol/L (10-20); BUN (Urea Nitrogen) 13 mg/dL (9.8-20.1); Calc. Creatinine Clearance 31 mL/min (70-130); Calcium 7.9 mg/dL (7.8-10.44); Carbon Dioxide 27 mmol/L (23-31); Chloride 105 mmol/L (98-107); Estimated GFR 42; Glucose 187 mg/dL (83-110); Potassium 3.9 mmol/L (3.5-5.1); Sodium 137 mmol/L (136-145)
[2022-07-09] MEDS: HumaLOG 300 UNITS/3 ML VIAL SC PRN (17:08)
[2022-07-09] MEDS: HYDROcodone/Acetaminophen 5/325 mg Tablet PO PRN (22:35)
[2022-07-09] MEDS: Melatonin 3 MG TAB PO PRN (22:39)
[2022-07-10] MEDS: Mometasone 200 MCG/Formoterol 5 MCG 120 PUFF INHALER INH SCH ×2 (06:52→19:28)
[2022-07-10] MEDS: D5 1/2 NS w/10 mEq KCl 1,000 ML/1,000 ML BAG IV SCH ×2 (07:39→21:16)
[2022-07-10] MEDS ORDERED: FLU VACC QS2022-23(65YR UP)/PF 240 MCG/0.7 ML SYRINGE IM ONE (09:00)
[2022-07-10] MEDS: Pantoprazole 40 MG VIAL IVP SCH (10:46)
[2022-07-10] MEDS: Aspirin 325 MG TAB PO SCH (10:47)
[2022-07-10] MEDS: Amlodipine 10 MG TAB PO SCH (10:48)
[2022-07-10] MEDS: Clopidogrel Bisulfate 75 MG TAB PO SCH (10:48)
[2022-07-10] MEDS: busPIRone HCl 5 MG TAB PO SCH ×3 (10:54→21:21)
[2022-07-10] MEDS: Amiodarone 200 MG TAB PO SCH ×2 (10:56→21:21)
[2022-07-10] MEDS: HumaLOG 300 UNITS/3 ML VIAL SC PRN (11:34)
[2022-07-10] MEDS: Scopolamine 1.5 mg/72 hour Patch TD SCH (21:20)
[2022-07-10 23:31] LABS: #Eosinphils 0.3 thou/uL (0.0-0.7); #Lymphocytes 0.9 thou/uL (1.20-3.40); #Monocytes 0.7 thou/uL (0.11-0.59); #Neutrophils 5.7 thou/uL (1.40-6.50); %Basophils 0.2 % (0.0-1.0); %Eosinophils 3.7 % (0.0-10.0); %Lymphocytes 11.9 % (21.0-51.0); %Monocytes 9.3 % (0.0-10.0); %Neutrophils 74.9 % (42.0-75.0); Hemoglobin 7.9 g/dL (12.0-16.0); Mean Corpuscular HGB CONC 33.3 g/dL (32.0-36.0); Mean Corpuscular Hemoglobin 34.9 pg (27.0-31.0); Mean Platelet Volume 7.8 fL (7.4-10.4); Platelet Count 220 10x3/uL (130-400); RBC Distribution Width 16.2 % (11.5-14.5); Red Blood Cell (RBC) Count 2.28 mill/uL (4.20-5.40); White Blood Cell (WBC) Count 7.7 10x3/uL (4.8-10.8)
[2022-07-11] MEDS: D5 1/2 NS w/10 mEq KCl 1,000 ML/1,000 ML BAG IV SCH ×2 (04:02→16:38)
[2022-07-11] MEDS: Mometasone 200 MCG/Formoterol 5 MCG 120 PUFF INHALER INH SCH ×2 (06:53→19:55)
[2022-07-11] MEDS ORDERED: Ipratropium/Albuterol 3 ML NEB NEB PRN (11:33)
[2022-07-11] MEDS: Amiodarone 200 MG TAB PO SCH ×2 (11:35→20:43)
[2022-07-11] MEDS: Pantoprazole 40 MG VIAL IVP SCH (11:35)
[2022-07-11] MEDS: Amlodipine 10 MG TAB PO SCH (11:35)
[2022-07-11] MEDS: Clopidogrel Bisulfate 75 MG TAB PO SCH (11:35)
[2022-07-11] MEDS: Aspirin 325 MG TAB PO SCH (11:35)
[2022-07-11] MEDS: busPIRone HCl 5 MG TAB PO SCH ×3 (11:35→20:44)
[2022-07-11] MEDS: HumaLOG 300 UNITS/3 ML VIAL SC PRN (12:29)
[2022-07-11] MEDS: traMADol HCl 50 MG TAB PO PRN (20:40)
[2022-07-11] MEDS: ALPRAZolam 0.25 MG TAB PO PRN (20:44)
[2022-07-12] MEDS: D5 1/2 NS w/10 mEq KCl 1,000 ML/1,000 ML BAG IV SCH ×2 (05:44→20:44)
[2022-07-12] MEDS: Mometasone 200 MCG/Formoterol 5 MCG 120 PUFF INHALER INH SCH ×2 (07:19→20:25)
[2022-07-12] MEDS: Aspirin 81 mg Enteric Coated Tablet PO SCH (09:41)
[2022-07-12] MEDS: Amiodarone 200 MG TAB PO SCH ×2 (09:41→20:45)
[2022-07-12] MEDS: busPIRone HCl 5 MG TAB PO SCH ×3 (09:41→20:45)
[2022-07-12] MEDS: Amlodipine 10 MG TAB PO SCH (09:42)
[2022-07-12] MEDS: Clopidogrel Bisulfate 75 MG TAB PO SCH (09:45)
[2022-07-12] MEDS: Pantoprazole 40 MG VIAL IVP SCH (09:45)
[2022-07-12] MEDS: HumaLOG 300 UNITS/3 ML VIAL SC PRN (12:08)
[2022-07-12 16:40] LABS: #Eosinphils 0.2 thou/uL (0.0-0.7); #Lymphocytes 0.9 thou/uL (1.20-3.40); #Monocytes 0.6 thou/uL (0.11-0.59); %Eosinophils 3.1 % (0.0-10.0); %Lymphocytes 15.2 % (21.0-51.0); %Monocytes 10.8 % (0.0-10.0); Hemoglobin 8.2 g/dL (12.0-16.0); Mean Corpuscular HGB CONC 32.7 g/dL (32.0-36.0); Mean Corpuscular Hemoglobin 34.1 pg (27.0-31.0); Mean Platelet Volume 7.9 fL (7.4-10.4); Platelet Count 209 10x3/uL (130-400); RBC Distribution Width 16.3 % (11.5-14.5); White Blood Cell (WBC) Count 5.7 10x3/uL (4.8-10.8)
[2022-07-12 16:56] LABS: Anion Gap 9 mmol/L (10-20); BUN (Urea Nitrogen) 9 mg/dL (9.8-20.1); Calc. Creatinine Clearance 32 mL/min (70-130); Calcium 8.2 mg/dL (7.8-10.44); Carbon Dioxide 24 mmol/L (23-31); Chloride 107 mmol/L (98-107); Estimated GFR 44; Glucose 107 mg/dL (83-110); Potassium 3.8 mmol/L (3.5-5.1); Sodium 136 mmol/L (136-145)
[2022-07-12] MEDS: traMADol HCl 50 MG TAB PO PRN (20:45)
[2022-07-12] MEDS: ALPRAZolam 0.25 MG TAB PO PRN (20:45)
[2022-07-13] MEDS: Mometasone 200 MCG/Formoterol 5 MCG 120 PUFF INHALER INH SCH ×2 (07:09→19:24)
[2022-07-13] MEDS: Pantoprazole 40 MG VIAL IVP SCH (10:35)
[2022-07-13] MEDS: Aspirin 81 mg Enteric Coated Tablet PO SCH (10:37)
[2022-07-13] MEDS: Clopidogrel Bisulfate 75 MG TAB PO SCH (10:37)
[2022-07-13] MEDS: busPIRone HCl 5 MG TAB PO SCH ×3 (10:37→21:34)
[2022-07-13] MEDS: Amiodarone 200 MG TAB PO SCH ×2 (10:38→21:35)
[2022-07-13] MEDS: Amlodipine 10 MG TAB PO SCH (10:38)
[2022-07-13] MEDS: D5 1/2 NS w/10 mEq KCl 1,000 ML/1,000 ML BAG IV SCH ×2 (10:45→13:22)
[2022-07-13] MEDS: HumaLOG 300 UNITS/3 ML VIAL SC PRN (11:26)
[2022-07-13 16:46] LABS: Bilirubin Negative (Negative); Blood, Urine Negative (Negative); CAUTI Indications for Culture Acute Hematuria; Clarity Clear (Clear); Glucose, Urine (Dipstick) Normal (Negative); Ketone, Urine Negative (Negative); Leukocyte Negative Leu/uL (Negative); Nitrite Negative (Negative); Protein, Urine (Dipstick) 10 mg/dL (Neg-Trace); RBC/HPF 0-3 HPF (0-3); Specific Gravity, Urine 1.007 (1.002-1.036); Squamous Epithelial None Seen HPF (0-3); Urobilinogen Normal mg/dL (Less than 2); WBC/HPF 0-3 HPF (0-3); pH, Urine 5.5 (5.0-9.0)
[2022-07-13 16:47] LABS: Bacteria/HPF 1+ HPF (None Seen); Urine Culture Reflex No No
[2022-07-13] MEDS: traMADol HCl 50 MG TAB PO PRN (21:34)
[2022-07-13] MEDS: ALPRAZolam 0.25 MG TAB PO PRN (21:34)
[2022-07-13] MEDS: Atorvastatin Calcium 40 MG TAB PO SCH (21:35)
[2022-07-13] MEDS: Scopolamine 1.5 mg/72 hour Patch TD SCH (21:35)
[2022-07-14 04:50] LABS: #Eosinphils 0.3 thou/uL (0.0-0.7); #Monocytes 0.8 thou/uL (0.11-0.59); #Neutrophils 4.3 thou/uL (1.40-6.50); %Basophils 0.5 % (0.0-1.0); %Lymphocytes 15.2 % (21.0-51.0); %Monocytes 12.5 % (0.0-10.0); %Neutrophils 67.8 % (42.0-75.0); Hemoglobin 8.2 g/dL (12.0-16.0); Mean Corpuscular Hemoglobin 35.6 pg (27.0-31.0); Mean Platelet Volume 7.9 fL (7.4-10.4); Platelet Count 217 10x3/uL (130-400); RBC Distribution Width 16.2 % (11.5-14.5); White Blood Cell (WBC) Count 6.4 10x3/uL (4.8-10.8)
[2022-07-14 04:52] LABS: Actual Bicarbonate (HCO3v) 22 mEq/L (22-28); Base Excess -0.2 mEq/L (-2.0 to +3.0); Calcium, Ionized (venous) 0.98 mmol/L (1.16-1.32); Chloride (VBG) 107 mmol/L (98-106); Hemoglobin (Hb) 9.2 g/dL (11.7-16.1); Potassium (VBG) 4.35 mmol/L (3.70-5.30); Sodium 133.2 mmol/L (133-146); pH (venous) 7.55 (7.32-7.43)
[2022-07-14 05:06] LABS: Anion Gap 13 mmol/L (10-20); BUN (Urea Nitrogen) 9 mg/dL (9.8-20.1); Calc. Creatinine Clearance 32 mL/min (70-130); Calcium 8.1 mg/dL (7.8-10.44); Carbon Dioxide 21 mmol/L (23-31); Chloride 107 mmol/L (98-107); Estimated GFR 43; Glucose 129 mg/dL (83-110); Potassium 4.2 mmol/L (3.5-5.1); Sodium 137 mmol/L (136-145)
[2022-07-14] MEDS: D5 1/2 NS w/10 mEq KCl 1,000 ML/1,000 ML BAG IV SCH (06:34)
[2022-07-14] MEDS: Mometasone 200 MCG/Formoterol 5 MCG 120 PUFF INHALER INH SCH ×2 (07:34→19:24)
[2022-07-14] MEDS ORDERED: Furosemide 40 MG/4 ML VIAL SLOW IVP SCH (09:30)
[2022-07-14] MEDS: Pantoprazole 40 MG VIAL IVP SCH ×2 (11:11→13:41)
[2022-07-14] MEDS: Amiodarone 200 MG TAB PO SCH ×2 (11:12→20:00)
[2022-07-14] MEDS: Amlodipine 10 MG TAB PO SCH (11:12)
[2022-07-14] MEDS: busPIRone HCl 5 MG TAB PO SCH ×3 (11:12→20:00)
[2022-07-14] MEDS: Clopidogrel Bisulfate 75 MG TAB PO SCH (11:12)
[2022-07-14] MEDS: Aspirin 81 mg Enteric Coated Tablet PO SCH (11:12)
[2022-07-14] MEDS ORDERED: Furosemide 40 MG TAB PO SCH (12:45)
[2022-07-14 16:03] LABS: Troponin I 0.022 ng/mL (< 0.028)
[2022-07-14] MEDS: Acetaminophen 325 MG TAB PO PRN (20:00)
[2022-07-14] MEDS: Atorvastatin Calcium 40 MG TAB PO SCH (20:00)
[2022-07-14] MEDS ORDERED: Apixaban 2.5 MG TAB PO SCH (21:00)
[2022-07-15 05:42] LABS: #Eosinphils 0.3 thou/uL (0.0-0.7); #Lymphocytes 1.2 thou/uL (1.20-3.40); #Monocytes 0.8 thou/uL (0.11-0.59); #Neutrophils 4.7 thou/uL (1.40-6.50); %Basophils 0.2 % (0.0-1.0); %Eosinophils 3.8 % (0.0-10.0); %Lymphocytes 17.1 % (21.0-51.0); %Monocytes 11.2 % (0.0-10.0); %Neutrophils 67.6 % (42.0-75.0); Hemoglobin 8.4 g/dL (12.0-16.0); Mean Corpuscular HGB CONC 32.7 g/dL (32.0-36.0); Mean Corpuscular Hemoglobin 34.6 pg (27.0-31.0); Platelet Count 218 10x3/uL (130-400); RBC Distribution Width 16.2 % (11.5-14.5); Red Blood Cell (RBC) Count 2.44 mill/uL (4.20-5.40); White Blood Cell (WBC) Count 6.9 10x3/uL (4.8-10.8)
[2022-07-15 06:01] LABS: Anion Gap 14 mmol/L (10-20); BUN (Urea Nitrogen) 10 mg/dL (9.8-20.1); Calc. Creatinine Clearance 29 mL/min (70-130); Calcium 8.3 mg/dL (7.8-10.44); Carbon Dioxide 23 mmol/L (23-31); Chloride 106 mmol/L (98-107); Estimated GFR 39; Glucose 99 mg/dL (83-110); Potassium 3.8 mmol/L (3.5-5.1); Sodium 139 mmol/L (136-145)
[2022-07-15] MEDS: Mometasone 200 MCG/Formoterol 5 MCG 120 PUFF INHALER INH SCH ×2 (07:18→19:13)
[2022-07-15] MEDS: Amiodarone 200 MG TAB PO SCH ×2 (09:35→20:30)
[2022-07-15] MEDS: Amlodipine 10 MG TAB PO SCH (09:35)
[2022-07-15] MEDS: Aspirin 81 mg Enteric Coated Tablet PO SCH (09:35)
[2022-07-15] MEDS: busPIRone HCl 5 MG TAB PO SCH ×3 (09:35→20:30)
[2022-07-15] MEDS: Pantoprazole 40 MG VIAL IVP SCH (09:35)
[2022-07-15] MEDS: Atorvastatin Calcium 40 MG TAB PO SCH (20:30)
[2022-07-15] MEDS: Acetaminophen 325 MG TAB PO PRN (20:30)
[2022-07-16 06:06] LABS: #Eosinphils 0.1 thou/uL (0.0-0.7); #Lymphocytes 0.9 thou/uL (1.20-3.40); #Monocytes 0.6 thou/uL (0.11-0.59); #Neutrophils 4.6 thou/uL (1.40-6.50); %Eosinophils 2.2 % (0.0-10.0); %Monocytes 9.4 % (0.0-10.0); %Neutrophils 74.5 % (42.0-75.0); Hemoglobin 8.1 g/dL (12.0-16.0); Mean Corpuscular Hemoglobin 34.5 pg (27.0-31.0); Platelet Count 218 10x3/uL (130-400); Red Blood Cell (RBC) Count 2.36 mill/uL (4.20-5.40); White Blood Cell (WBC) Count 6.1 10x3/uL (4.8-10.8)
[2022-07-16 06:47] LABS: Anion Gap 17 mmol/L (10-20); BUN (Urea Nitrogen) 11 mg/dL (9.8-20.1); Calc. Creatinine Clearance 31 mL/min (70-130); Calcium 8.1 mg/dL (7.8-10.44); Carbon Dioxide 19 mmol/L (23-31); Chloride 107 mmol/L (98-107); Estimated GFR 42; Glucose 83 mg/dL (83-110); Potassium 3.7 mmol/L (3.5-5.1); Sodium 139 mmol/L (136-145)
[2022-07-16] MEDS: Mometasone 200 MCG/Formoterol 5 MCG 120 PUFF INHALER INH SCH ×2 (08:25→19:51)
[2022-07-16] MEDS: busPIRone HCl 5 MG TAB PO SCH ×3 (08:28→20:57)
[2022-07-16] MEDS: Apixaban 2.5 MG TAB PO SCH ×2 (08:28→20:57)
[2022-07-16] MEDS: Aspirin 81 mg Enteric Coated Tablet PO SCH (08:28)
[2022-07-16] MEDS: Amlodipine 10 MG TAB PO SCH (08:28)
[2022-07-16] MEDS: Amiodarone 200 MG TAB PO SCH ×2 (08:28→20:57)
[2022-07-16] MEDS: Pantoprazole 40 MG VIAL IVP SCH (08:29)
[2022-07-16] MEDS ORDERED: Apixaban 5 MG TAB PO SCH (09:00)
[2022-07-16] MEDS: Atorvastatin Calcium 40 MG TAB PO SCH (20:57)
[2022-07-16] MEDS: ALPRAZolam 0.25 MG TAB PO PRN (20:58)
[2022-07-16] MEDS: HYDROcodone/Acetaminophen 5/325 mg Tablet PO PRN (20:58)
[2022-07-16] MEDS: Scopolamine 1.5 mg/72 hour Patch TD SCH (21:03)
[2022-07-17] MEDS: Mometasone 200 MCG/Formoterol 5 MCG 120 PUFF INHALER INH SCH ×2 (06:55→19:26)
[2022-07-17 07:08] LABS: #Eosinphils 0.2 thou/uL (0.0-0.7); #Lymphocytes 1.1 thou/uL (1.20-3.40); #Monocytes 0.6 thou/uL (0.11-0.59); #Neutrophils 3.4 thou/uL (1.40-6.50); %Basophils 0.5 % (0.0-1.0); %Eosinophils 3.7 % (0.0-10.0); %Lymphocytes 20.7 % (21.0-51.0); %Monocytes 11.8 % (0.0-10.0); %Neutrophils 63.4 % (42.0-75.0); Hemoglobin 8.2 g/dL (12.0-16.0); Mean Corpuscular HGB CONC 33.4 g/dL (32.0-36.0); Mean Corpuscular Hemoglobin 34.8 pg (27.0-31.0); Platelet Count 193 10x3/uL (130-400); RBC Distribution Width 15.8 % (11.5-14.5); Red Blood Cell (RBC) Count 2.36 mill/uL (4.20-5.40); White Blood Cell (WBC) Count 5.4 10x3/uL (4.8-10.8)
[2022-07-17 07:27] LABS: Anion Gap 14 mmol/L (10-20); BUN (Urea Nitrogen) 12 mg/dL (9.8-20.1); Calc. Creatinine Clearance 30 mL/min (70-130); Calcium 8.5 mg/dL (7.8-10.44); Carbon Dioxide 24 mmol/L (23-31); Chloride 107 mmol/L (98-107); Estimated GFR 40; Glucose 72 mg/dL (83-110); Potassium 3.6 mmol/L (3.5-5.1); Sodium 141 mmol/L (136-145)
[2022-07-17] MEDS: Amiodarone 200 MG TAB PO SCH ×2 (09:09→20:31)
[2022-07-17] MEDS: Apixaban 2.5 MG TAB PO SCH ×2 (09:09→20:32)
[2022-07-17] MEDS: Aspirin 81 mg Enteric Coated Tablet PO SCH (09:09)
[2022-07-17] MEDS: Amlodipine 10 MG TAB PO SCH (09:09)
[2022-07-17] MEDS: busPIRone HCl 5 MG TAB PO SCH ×3 (09:09→20:31)
[2022-07-17] MEDS: Pantoprazole 40 MG VIAL IVP SCH (09:09)
[2022-07-17] MEDS: HYDROcodone/Acetaminophen 5/325 mg Tablet PO PRN (16:14)
[2022-07-17] MEDS: ALPRAZolam 0.25 MG TAB PO PRN (20:31)
[2022-07-17] MEDS: Atorvastatin Calcium 40 MG TAB PO SCH (20:32)
[2022-07-18] MEDS: Mometasone 200 MCG/Formoterol 5 MCG 120 PUFF INHALER INH SCH ×2 (07:47→19:08)
[2022-07-18] MEDS: Amiodarone 200 MG TAB PO SCH ×2 (10:11→21:16)
[2022-07-18] MEDS: Apixaban 2.5 MG TAB PO SCH ×2 (10:11→21:16)
[2022-07-18] MEDS: busPIRone HCl 5 MG TAB PO SCH ×3 (10:11→21:16)
[2022-07-18] MEDS: Aspirin 81 mg Enteric Coated Tablet PO SCH (10:11)
[2022-07-18] MEDS: Amlodipine 10 MG TAB PO SCH (10:11)
[2022-07-18] MEDS: Pantoprazole 40 MG VIAL IVP SCH (10:12)
[2022-07-18] MEDS: traMADol HCl 50 MG TAB PO PRN (18:22)
[2022-07-18] MEDS: Ipratropium/Albuterol 3 ML NEB NEB SCH (19:07)
[2022-07-18] MEDS: Atorvastatin Calcium 40 MG TAB PO SCH (21:15)
[2022-07-19] MEDS: Ipratropium/Albuterol 3 ML NEB NEB SCH ×5 (00:19→23:34)
[2022-07-19] MEDS: HYDROcodone/Acetaminophen 5/325 mg Tablet PO PRN (03:17)
[2022-07-19] MEDS: Mometasone 200 MCG/Formoterol 5 MCG 120 PUFF INHALER INH SCH ×2 (07:17→18:36)
[2022-07-19] MEDS: Amiodarone 200 MG TAB PO SCH ×2 (10:02→22:44)
[2022-07-19] MEDS: Apixaban 2.5 MG TAB PO SCH ×2 (10:03→22:42)
[2022-07-19] MEDS: Amlodipine 10 MG TAB PO SCH (10:03)
[2022-07-19] MEDS: busPIRone HCl 5 MG TAB PO SCH ×3 (10:03→22:42)
[2022-07-19] MEDS: Aspirin 81 mg Enteric Coated Tablet PO SCH (10:03)
[2022-07-19] MEDS: Scopolamine 1.5 mg/72 hour Patch TD SCH (22:41)
[2022-07-19] MEDS: Atorvastatin Calcium 40 MG TAB PO SCH (22:42)
[2022-07-19] MEDS: Pantoprazole 40 MG VIAL IVP SCH (22:43)
[2022-07-20 06:24] LABS: #Eosinphils 0.1 thou/uL (0.0-0.7); #Lymphocytes 0.7 thou/uL (1.20-3.40); #Monocytes 0.7 thou/uL (0.11-0.59); #Neutrophils 9.1 thou/uL (1.40-6.50); %Eosinophils 0.5 % (0.0-10.0); %Lymphocytes 6.6 % (21.0-51.0); %Monocytes 6.7 % (0.0-10.0); %Neutrophils 86.1 % (42.0-75.0); Hemoglobin 7.9 g/dL (12.0-16.0); Mean Corpuscular HGB CONC 32.7 g/dL (32.0-36.0); Mean Corpuscular Hemoglobin 34.2 pg (27.0-31.0); Mean Platelet Volume 8.6 fL (7.4-10.4); Platelet Count 184 10x3/uL (130-400); Red Blood Cell (RBC) Count 2.31 mill/uL (4.20-5.40); White Blood Cell (WBC) Count 10.6 10x3/uL (4.8-10.8)
[2022-07-20 06:46] LABS: Anion Gap 17 mmol/L (10-20); BUN (Urea Nitrogen) 14 mg/dL (9.8-20.1); Calc. Creatinine Clearance 33 mL/min (70-130); Calcium 8.8 mg/dL (7.8-10.44); Carbon Dioxide 20 mmol/L (23-31); Chloride 109 mmol/L (98-107); Estimated GFR 45; Glucose 116 mg/dL (83-110); Magnesium 1.8 mg/dL (1.6-2.6); Potassium 3.9 mmol/L (3.5-5.1); Sodium 142 mmol/L (136-145)
[2022-07-20] MEDS: Ipratropium/Albuterol 3 ML NEB NEB SCH ×2 (08:01→20:32)
[2022-07-20] MEDS: Mometasone 200 MCG/Formoterol 5 MCG 120 PUFF INHALER INH SCH ×2 (08:02→20:35)
[2022-07-20] MEDS ORDERED: Electrolyte Replacement Protocol 1 EACH FS SCH (08:15)
[2022-07-20] MEDS ORDERED: Electrolyte Replacement Protocol FS PRN (08:15)
[2022-07-20] MEDS: Apixaban 2.5 MG TAB PO SCH ×2 (08:28→22:38)
[2022-07-20] MEDS: Amiodarone 200 MG TAB PO SCH ×2 (08:29→22:38)
[2022-07-20] MEDS: Amlodipine 10 MG TAB PO SCH (08:30)
[2022-07-20] MEDS ORDERED: Furosemide 20 MG/2 ML VIAL SLOW IVP SCH (08:30)
[2022-07-20] MEDS: busPIRone HCl 5 MG TAB PO SCH ×3 (08:37→22:39)
[2022-07-20] MEDS: HYDROcodone/Acetaminophen 5/325 mg Tablet PO PRN (08:37)
[2022-07-20] MEDS: Aspirin 81 mg Enteric Coated Tablet PO SCH (08:37)
[2022-07-20] MEDS ORDERED: Magnesium 2 GM/50 ML(in water) 2 GM in Premix Bag 1 BAG IVPB SCH (10:15)
[2022-07-20] MEDS ORDERED: traMADol HCl 50 MG TAB PO PRN (13:00)
[2022-07-20] MEDS: Acetaminophen 325 MG TAB PO PRN (22:38)
[2022-07-20] MEDS: Pantoprazole 40 MG VIAL IVP SCH (22:39)
[2022-07-20] MEDS: Atorvastatin Calcium 40 MG TAB PO SCH (23:30)
[2022-07-21] MEDS: Mometasone 200 MCG/Formoterol 5 MCG 120 PUFF INHALER INH SCH ×2 (06:57→20:19)
[2022-07-21] MEDS: Ipratropium/Albuterol 3 ML NEB NEB SCH ×2 (06:57→20:15)
[2022-07-21 10:24] LABS: Magnesium 2.3 mg/dL (1.6-2.6)
[2022-07-21] MEDS: Apixaban 2.5 MG TAB PO SCH ×2 (11:54→22:03)
[2022-07-21] MEDS: Amiodarone 200 MG TAB PO SCH ×2 (12:01→22:03)
[2022-07-21] MEDS: Aspirin 81 mg Enteric Coated Tablet PO SCH (12:07)
[2022-07-21] MEDS: busPIRone HCl 5 MG TAB PO SCH ×3 (12:08→22:03)
[2022-07-21] MEDS: Amlodipine 10 MG TAB PO SCH (12:20)
[2022-07-21] MEDS: Atorvastatin Calcium 40 MG TAB PO SCH (22:03)
[2022-07-21] MEDS: Acetaminophen 325 MG TAB PO PRN (22:03)
[2022-07-21] MEDS: Bisacodyl 10 MG SUPP PR SCH (22:03)
[2022-07-21] MEDS: Melatonin 3 MG TAB PO PRN (22:03)
[2022-07-21] MEDS: Senokot S 8.6-50 MG TAB PO SCH (22:04)
[2022-07-21] MEDS: Polyethylene Glycol 3350 17 GM Packet PO SCH (22:04)
[2022-07-22] MEDS: Atorvastatin Calcium 40 MG TAB PO SCH ×2 (06:50→20:51)
[2022-07-22] MEDS: Ipratropium/Albuterol 3 ML NEB NEB SCH ×2 (07:24→19:46)
[2022-07-22] MEDS: Mometasone 200 MCG/Formoterol 5 MCG 120 PUFF INHALER INH SCH ×2 (07:31→19:46)
[2022-07-22] MEDS ORDERED: Furosemide 40 MG TAB PO SCH ×2 (08:15→16:00)
[2022-07-22] MEDS: Potassium Bicarbonate/Cit Ac 20 MEQ TAB PO SCH ×2 (09:02→12:09)
[2022-07-22] MEDS: Amiodarone 200 MG TAB PO SCH ×2 (09:03→20:51)
[2022-07-22] MEDS: Apixaban 2.5 MG TAB PO SCH (09:03)
[2022-07-22] MEDS: Aspirin 81 mg Enteric Coated Tablet PO SCH (09:04)
[2022-07-22] MEDS: Amlodipine 10 MG TAB PO SCH (09:04)
[2022-07-22] MEDS: busPIRone HCl 5 MG TAB PO SCH (09:04)
[2022-07-22] MEDS: Senokot S 8.6-50 MG TAB PO SCH ×2 (09:05→19:50)
[2022-07-22 12:30] LABS: #Lymphocytes 0.6 thou/uL (1.20-3.40); #Monocytes 0.6 thou/uL (0.11-0.59); #Neutrophils 14.6 thou/uL (1.40-6.50); %Eosinophils 0.2 % (0.0-10.0); %Lymphocytes 3.5 % (21.0-51.0); %Monocytes 3.6 % (0.0-10.0); %Neutrophils 92.7 % (42.0-75.0); Mean Corpuscular HGB CONC 31.6 g/dL (32.0-36.0); Mean Corpuscular Hemoglobin 33.1 pg (27.0-31.0); Platelet Count 155 10x3/uL (130-400); RBC Distribution Width 16.6 % (11.5-14.5); White Blood Cell (WBC) Count 15.7 10x3/uL (4.8-10.8)
[2022-07-22 12:51] LABS: ALT (SGPT) 60 U/L (8-55); AST (SGOT) 83 U/L (5-34); Albumin 2.4 g/dL (3.4-4.8); Alkaline Phosphatase 102 U/L (40-110); Anion Gap 19 mmol/L (10-20); BUN (Urea Nitrogen) 22 mg/dL (9.8-20.1); Bilirubin, Total 0.5 mg/dL (0.2-1.2); Calc. Creatinine Clearance 30 mL/min (70-130); Calcium 8.6 mg/dL (7.8-10.44); Carbon Dioxide 19 mmol/L (23-31); Chloride 111 mmol/L (98-107); Estimated GFR 40; Glucose 166 mg/dL (83-110); Potassium 3.4 mmol/L (3.5-5.1); Protein, Total 5.4 g/dL (5.8-8.1); Sodium 146 mmol/L (136-145)
[2022-07-22] MEDS ORDERED: Potassium Chloride 20 MEQ TAB PO SCH (14:15)
[2022-07-22] MEDS: Potassium Chloride 20 MEQ in Premix Bag 1 BAG IVPB SCH ×2 (15:18→17:55)
[2022-07-22] MEDS ORDERED: Albumin 25% 25 GM/100 ML BOT IVPB SCH ×2 (18:00→18:15)
[2022-07-22] MEDS ORDERED: Furosemide 20 MG/2 ML VIAL SLOW IVP SCH (18:00)
[2022-07-22] MEDS ORDERED: cefTRIAXone\\ROCEPHIN 1 GM in Sodium Chloride 0.9% 100 ML IVPB SCH ×2 (18:30→20:00)
[2022-07-22 19:21] VITALS: BP 138/50
[2022-07-22] MEDS: D5W-AA 4.25% with LYTES 1,000 ML IV SCH (19:41)
[2022-07-22] MEDS: Bisacodyl 10 MG SUPP PR SCH (19:50)
[2022-07-22] MEDS: Polyethylene Glycol 3350 17 GM Packet PO SCH (19:50)
[2022-07-22] MEDS ORDERED: busPIRone HCl 5 MG TAB PO SCH (21:00)
[2022-07-22] MEDS: Artificial Tear Sol 15 ML BOT EA EYE SCH (21:12)
[2022-07-22] MEDS: metroNIDAZOLE 500 MG in Premix Bag 1 BAG IVPB SCH (21:33)
[2022-07-22 22:52] LABS: Hemoglobin 8.7 g/dL (12.0-16.0)
[2022-07-22 23:02] LABS: Potassium 4.3 mmol/L (3.5-5.1)
[2022-07-22] MEDS ORDERED: Scopolamine 1.5 mg/72 hour Patch TD SCH (23:30)
[2022-07-23 00:29] LABS: Base Excess (BEa) -3.4 mEq/L (-2.0 to +3.0); Calcium, Ionized (arterial) 1.21 mmol/L (1.12-1.30); Carboxyhemoglobin (COHb) 1.6 gm% (0.0-3.0); Hemoglobin (Hb) 9.4 g/dL (12.0-16.0); Potassium - ABG Lab 4.14 mmol/L (3.70-5.30)
[2022-07-23 01:03] LABS: O2 Tension (PaO2), arterial 44.3 mmHg (> 60.0)
[2022-07-23 01:04] LABS: Puncture Site LRA
[2022-07-23 04:26] LABS: Reticulocyte Count 2.5 % (0.5-1.5)
[2022-07-23 04:50] LABS: Anion Gap 15 mmol/L (10-20); BUN (Urea Nitrogen) 30 mg/dL (9.8-20.1); Calc. Creatinine Clearance 23 mL/min (70-130); Calcium 8.7 mg/dL (7.8-10.44); Carbon Dioxide 23 mmol/L (23-31); Chloride 111 mmol/L (98-107); Estimated GFR 30; Glucose 253 mg/dL (83-110); Potassium 4.1 mmol/L (3.5-5.1); Sodium 145 mmol/L (136-145)
[2022-07-23 04:52] LABS: CRP (Inflammatory) 24.67 mg/dL (= or < 0.5); Magnesium 2.1 mg/dL (1.6-2.6)
[2022-07-23 04:57] LABS: Hemoglobin 9.1 g/dL (12.0-16.0); Mean Corpuscular HGB CONC 32.2 g/dL (32.0-36.0); Mean Corpuscular Hemoglobin 30.4 pg (27.0-31.0); Mean Corpuscular Volume 94.4 fl (78.0-98.0); Mean Platelet Volume 9.7 fL (7.4-10.4); Platelet Count 160 10x3/uL (130-400); RBC Distribution Width 23.2 % (11.5-14.5); Red Blood Cell (RBC) Count 2.98 mill/uL (4.20-5.40); White Blood Cell (WBC) Count 22.1 10x3/uL (4.8-10.8)
[2022-07-23 04:58] LABS: Band 17 % (5-11); Hypochromia SLIGHT = 6-15 cells (100X) (0-5/hpf); MDiff Complete? YES; Monocytes 9 % (0-10); Neutrophil 74 % (42-75); Platelet Morphology Comment Appears Adequate
[2022-07-23] MEDS: metroNIDAZOLE 500 MG in Premix Bag 1 BAG IVPB SCH ×3 (05:39→21:23)
[2022-07-23] MEDS: HumaLOG 300 UNITS/3 ML VIAL SC PRN (06:07)
[2022-07-23] MEDS: Ipratropium/Albuterol 3 ML NEB NEB SCH ×2 (06:56→18:48)
[2022-07-23] MEDS: Mometasone 200 MCG/Formoterol 5 MCG 120 PUFF INHALER INH SCH ×2 (06:56→18:50)
[2022-07-23] MEDS ORDERED: D5W-AA 4.25% with LYTES 1,000 ML IV SCH (09:00)
[2022-07-23] MEDS: Amiodarone 200 MG TAB PO SCH ×2 (10:30→21:24)
[2022-07-23] MEDS: Artificial Tear Sol 15 ML BOT EA EYE SCH ×3 (10:32→21:25)
[2022-07-23] MEDS: Aspirin 81 mg Enteric Coated Tablet PO SCH (10:33)
[2022-07-23] MEDS: Furosemide 20 MG/2 ML VIAL SLOW IVP SCH (10:33)
[2022-07-23] MEDS: Cyanocobalamin (Vitamin B-12) 1,000 MCG TAB PO SCH (10:34)
[2022-07-23] MEDS: Multivit, Therapeutic 1 TAB PO SCH (10:34)
[2022-07-23] MEDS: Folic Acid 1 MG TAB PO SCH (10:34)
[2022-07-23] MEDS: Senokot S 8.6-50 MG TAB PO SCH ×2 (10:35→21:23)
[2022-07-23] MEDS ORDERED: cefTRIAXone\\ROCEPHIN 1 GM in Sodium Chloride 0.9% 100 ML IVPB SCH ×2 (18:00→20:00)
[2022-07-23] MEDS ORDERED: Clindamycin/D5W 600 MG in Premix Bag 1 BAG IVPB SCH (21:00)
[2022-07-23] MEDS: D5W-AA 4.25% with LYTES 1,000 ML IV SCH (21:10)
[2022-07-23] MEDS: Polyethylene Glycol 3350 17 GM Packet PO SCH (21:24)
[2022-07-23] MEDS: Atorvastatin Calcium 40 MG TAB PO SCH (21:24)
[2022-07-23] MEDS: Bisacodyl 10 MG SUPP PR SCH (21:25)
[2022-07-24 04:22] LABS: ALT (SGPT) 47 U/L (8-55); AST (SGOT) 53 U/L (5-34); Albumin 2.2 g/dL (3.4-4.8); Alkaline Phosphatase 94 U/L (40-110); Anion Gap 15 mmol/L (10-20); BUN (Urea Nitrogen) 39 mg/dL (9.8-20.1); Bilirubin, Total 0.4 mg/dL (0.2-1.2); Calc. Creatinine Clearance 21 mL/min (70-130); Calcium 8.6 mg/dL (7.8-10.44); Carbon Dioxide 22 mmol/L (23-31); Chloride 113 mmol/L (98-107); Estimated GFR 29; Globulin 2.9 g/dL (2.4-3.5); Glucose 273 mg/dL (83-110); Potassium 4.3 mmol/L (3.5-5.1); Protein, Total 5.1 g/dL (5.8-8.1); Sodium 146 mmol/L (136-145)
[2022-07-24 04:37] LABS: Anisocytosis MODERATE=16-30 cells (100X) (0-5/hpf); Band 15 % (5-11); Burr Cells SLIGHT = 2-5 cells (100X) (0-1/hpf); Hemoglobin 10.2 g/dL (12.0-16.0); Hypochromia SLIGHT = 6-15 cells (100X) (0-5/hpf); MDiff Complete? YES; Mean Corpuscular HGB CONC 29.4 g/dL (32.0-36.0); Mean Corpuscular Hemoglobin 28.5 pg (27.0-31.0); Mean Platelet Volume 10.8 fL (7.4-10.4); Monocytes 5 % (0-10); Neutrophil 80 % (42-75); Platelet Count 120 10x3/uL (130-400); Platelet Morphology Comment Appears Decreased; Polychromasia SLIGHT = 2-3 cells (100X) (0-2/hpf); RBC Distribution Width 23.3 % (11.5-14.5); Red Blood Cell (RBC) Count 3.59 mill/uL (4.20-5.40); Target Cells SLIGHT = 2-5 cells (100X) (0-1/hpf)
[2022-07-24] MEDS: HumaLOG 300 UNITS/3 ML VIAL SC PRN ×2 (04:38→13:03)
[2022-07-24] MEDS: metroNIDAZOLE 500 MG in Premix Bag 1 BAG IVPB SCH ×2 (04:41→13:07)
[2022-07-24] MEDS: Clindamycin/D5W 600 MG in Premix Bag 1 BAG IVPB SCH ×2 (04:42→13:05)
[2022-07-24] MEDS: Ipratropium/Albuterol 3 ML NEB NEB SCH (06:45)
[2022-07-24] MEDS: Mometasone 200 MCG/Formoterol 5 MCG 120 PUFF INHALER INH SCH (06:45)
[2022-07-24] MEDS: Artificial Tear Sol 15 ML BOT EA EYE SCH (08:08)
[2022-07-24] MEDS: Furosemide 20 MG/2 ML VIAL SLOW IVP SCH (08:08)
[2022-07-24] MEDS: Amiodarone 200 MG TAB PO SCH (08:17)
[2022-07-24] MEDS: Cyanocobalamin (Vitamin B-12) 1,000 MCG TAB PO SCH (08:18)
[2022-07-24] MEDS: Folic Acid 1 MG TAB PO SCH (08:18)
[2022-07-24] MEDS: Senokot S 8.6-50 MG TAB PO SCH (08:18)
[2022-07-24] MEDS: Multivit, Therapeutic 1 TAB PO SCH (08:18)
[2022-07-24] MEDS: Aspirin 81 mg Enteric Coated Tablet PO SCH (08:18)
[2022-07-24] MEDS ORDERED: Pantoprazole 40 MG VIAL IVP SCH (09:00)
[2022-07-24] MEDS ORDERED: Lorazepam 2 MG/ML VIAL SLOW IVP PRN (11:10)
[2022-07-24] MEDS ORDERED: FENTANYL 50 MCG/ML 1 ML VIAL SLOW IVP PRN (11:16)
[2022-07-24 12:52] VITALS: TEMP 97.3
[2022-07-24] MEDS ORDERED: cefTRIAXone\\ROCEPHIN 2 GM in Sodium Chloride 0.9% 100 ML IVPB SCH (20:00)
== END 2022-07-24 17:30 | disposition expired | DRG 64 ==
LOC: ERS 14:27 → ERHOLD 17:05 → NEURO 23:09 → OBSVTOIN 07-07 12:22 → NEURO 07-19 01:35 → IMCU/EMU 07-23 01:29
PROVIDERS: ADMIT Student in an Organized Health Care Education/Training Program; ATTEND Family Medicine
PROC: 30233N1 Transfusion of Nonautologous Red Blood Cells into Peripheral Vein, Percutaneous Approach (ICD-10-PCS; principal; 2022-07-22)
PROC: 5A09357 Assistance with Respiratory Ventilation, Less than 24 Consecutive Hours, Continuous Positive Airway Pressure (ICD-10-PCS; 2022-07-23)
PROC: 4A133R1 Monitoring of Arterial Saturation, Peripheral, Percutaneous Approach (ICD-10-PCS; 2022-07-23)
PROC: 3E03329 Introduction of Other Anti-infective into Peripheral Vein, Percutaneous Approach (ICD-10-PCS; 2022-07-23)
DX: I63.511 Cerebral infarction due to unspecified occlusion or stenosis of right middle cerebral artery (principal); A41.9 Sepsis, unspecified organism; G93.41 Metabolic encephalopathy; I50.33 Acute on chronic diastolic (congestive) heart failure; J96.21 Acute and chronic respiratory failure with hypoxia; Z66 Do not resuscitate; J69.0 Pneumonitis due to inhalation of food and vomit; E44.0 Moderate protein-calorie malnutrition; I13.0 Hypertensive heart and chronic kidney disease with heart failure and stage 1 through stage 4 chronic kidney disease, or unspecified chronic kidney disease; R47.01 Aphasia; Z51.5 Encounter for palliative care; Z20.822 Contact with and (suspected) exposure to COVID-19; E78.5 Hyperlipidemia, unspecified; E11.22 Type 2 diabetes mellitus with diabetic chronic kidney disease; D63.1 Anemia in chronic kidney disease; R29.721 NIHSS score 21; F41.9 Anxiety disorder, unspecified; F32.A Depression, unspecified; R29.810 Facial weakness; G93.89 Other specified disorders of brain; N18.31 Chronic kidney disease, stage 3a; J44.9 Chronic obstructive pulmonary disease, unspecified; I73.9 Peripheral vascular disease, unspecified; I48.0 Paroxysmal atrial fibrillation; R77.8 Other specified abnormalities of plasma proteins; Z53.29 Procedure and treatment not carried out because of patient's decision for other reasons; E87.6 Hypokalemia; E83.42 Hypomagnesemia; R40.0 Somnolence; Z88.0 Allergy status to penicillin; Z88.5 Allergy status to narcotic agent; Z79.51 Long term (current) use of inhaled steroids; Z79.899 Other long term (current) drug therapy; Z79.82 Long term (current) use of aspirin; Z98.890 Other specified postprocedural states; Z68.20 Body mass index [BMI] 20.0-20.9, adult
CPT/HCPCS: 36415; 36416; 36430; 36600; 70450; 70496; 70498; 70551; 71045; 74230; 80048; 80053; 80061; 81001; 82553; 82805; 83735; 83880; 84100; 84145; 84484; 85025; 85046; 85610; 85730; 86140; 86850; 86900; 86901; 87811; 93005; 93010; 94640; 94660; 94664; 94760; 95712; 95816; 95819; 95957; 96372; 96374; 96375; C9113; G0378; J0696; J1650; J1815; J1940; J2405; J3010; J3475; J3480; J3490; J7611; J7620; P9016; P9047; Q9967; S0028; U0002